=== PATIENT | female | born 1980 | race Caucasian/White ===

== ENCOUNTER 2021-12-29 09:55 | Emergency (ER) | payer OTHER, SELFPAY ==
[2021-12-29 10:04] VITALS: BP 132/79; PULSE 90; RESP 14; TEMP 37.2; O2SAT 98; BMI 28.9
--- NOTE | 2021-12-29 11:02 | ED_ITS ---
HPI - Animal Bite General Chief Complaint: Animal Bite Stated Complaint: Animal bite right hand Time Seen by Provider: 12/29/21 10:55 Source: patient Mode of arrival: Ambulatory Limitations: no limitations History of Present Illness HPI narrative: This is a 41-year-old female who was bitten multiple times by a kinkajou on both thighs, multiple fingers of the right hand particularly over the joints and left finger. Patient's tetanus is up-to-date in the last 3 years. She takes an antidepressant but otherwise no other daily medications. She has had a partial hysterectomy and cholecystectomy. No known drug allergies. 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 She states the animal has been born ion captivity in their facility, has never had contact with other animals and has not shown any signs of infection. This animal has not been hit but she waited to people otherwise. She states it has not handled by humans normally. Patient states typically the animal will not come out while cleaning the cage which is what she was doing today. Today she completed her activities the animal exited it is housing the cage and jumped onto her arm. She states this is never current before. She moved her arm to try to get to jump back to its ledge and it began biting her. She did not appreciate any other new changes today. Patient states that she poured a bottle of hydrogen peroxide on the wounds on her hands. Related Data Previous Rx's Medication Instructions Recorded amoxicillin 875 mg-potassium 1 tab PO BID #20 tab 12/29/21 clavulanate 125 mg tablet doxycycline hyclate 100 mg tablet 100 mg PO BID #20 tab 12/29/21 Allergies Allergy/AdvReac Type Severity Reaction Status Date / Time No Known Drug Allergies Allergy Verified 12/29/21 10:04 Review of Systems Review of Systems ROS Unobtainable: All systems reviewed & are unremarkable except as noted in HPI and below Patient History Social History Smoking Status: Unknown if ever smoked Smoking Status: Unknown if ever smoked alcohol intake frequency: holidays/special occasions only Substance Use Type: does not use Exam Narrative Exam Narrative: GEN: well nourished, well appearing female, alert and oriented x 3, patient appears to be in mild distress. HEENT: Atraumatic, pupils are equal round reactive to light, extraocular movements are intact, nares are clear. HEART: Regular rate and rhythm without murmur, clicks, rubs. LUNGS:Lungs clear to auscultation, no wheezes, rales, crackles, chest moves symmetrically ABD:bowel sounds normal, soft, non-tender, no guarding, rebound, rigidity, no masses noted, no hepatosplenomegaly MSCL: Non-tender, no muscle atrophy, patient has multiple bites on her right kyle nd the majority are puncture and either superficial or quite small, she does have a laceration over the 2nd proximal interphalangeal joint she has about a 1 cm in length and deep and appears to be down to the joint capsule but appears intact, she has a 2nd laceration that is over the 3rd digit in the soft tissue just proximal to the middle interphalangeal joint which does gape with flexion extension but does not appear to be deep down to the joint itself. Patient has several small punctures on her left hand that are more superficial as well as right and left thigh, full range of motion, normal gait NEURO:CN 2-12 intact, sensation normal SKIN: Please note above. Initial Vital Signs Initial Vital Signs: Vital Signs Temperature 99.0 F 12/29/21 10:04 Pulse Rate 90 12/29/21 10:04 Respiratory Rate 14 12/29/21 10:04 Blood Pressure 132/79 12/29/21 10:04 Pulse Oximetry 98 12/29/21 10:04 Course Orders Ordered: Discontinued Medications Amoxicillin/Clavulanate Potassium (Amoxicillin/Clav 875/125 Mg) 1 tab PO NOW ONE Stop: 12/29/21 13:17 Last Admin: 12/29/21 13:50 Dose: 1 tab Documented by: DEB Bacitracin (Bacitracin Oint 0.9 Gm Pckt) 1 applic TOP NOW ONE Stop: 12/29/21 13:20 Last Admin: 12/29/21 13:50 Dose: 1 applic Documented by: DEB Doxycycline Hyclate (Doxycycline Hyclate 100 Mg Tablet) 100 mg PO NOW ONE Stop: 12/29/21 13:17 Last Admin: 12/29/21 13:50 Dose: 100 mg Documented by: DEB Lidocaine/Sodium Bicarbonate (Lido 1%/Sod Bicarb 8.4% (10ml) 10 Ml Syringe) 10 ml INJ NOW ONE Stop: 12/29/21 11:28 Last Admin: 12/29/21 12:04 Dose: 10 ml Documented by: BTONER Reevaluation(s) Reevaluation #1: Patient and I had discussed she had 2 wounds which are over joints or deeper and gape with movement. We discussed risks versus benefits of suture repair. Patient had wound irrigated here in the department. Major to irrigate the wounds on her thighs which she had not done so yet. After discussion initially were going to put approximate with 1 or 2 very loose sutures but after patient contemplated this for some time she elected not to have suture placement and to allow to heal by secondary intention to decrease infection risk. Vital Signs Vital signs: Vital Signs - 8 hr 12/29/21 13:58 Pulse Rate 91 H Respiratory Rate 18 Blood Pressure 132/79 Pulse Oximetry 100 MDM - Animal Bite MDM Narrative Medical decision making narrative: This is a pleasant 41-year-old female who had multiple bites from a captive animal at the facility she works set. Concerns for rabies are low this animal has been born and brought in captivity without contact with other animals it lives solitary early and is not handled regularly. Rabies vaccination was deferred 2nd did this. Wounds were irrigated, evaluated risk versus benefits for suture removal for the 2 deepest wounds were discussed and patient elects to hold off after sometime contemplating this. She was started on doxycycline and Augmentin for broad-spectrum coverage. Patient's tetanus is up to date. We discussed return precautions all questions answered. Patient had wounds bandaged and splint was placed over the 2 that are over joints so that they can heal properly. All questions answered. Discharge Plan Departure Patient Disposition: Home Clinical Impression: Animal bites Instructions: DI for Animal Bites Activity Restrictions/Additional Instructions: Follow-up this week for recheck. Monitor closely for wound infections. Your wounds are healing by secondary intention so be sure to wear the splint to allow them to stay closed. You may take Tylenol and/or ibuprofen as needed for pain. Take both antibiotics until completely gone. Prescription sent to [facility] in [place] Wound Care: Keep wound(s) clean and dry. Wash daily with soap and water only. Do not use over the counter products (alcohol or peroxide)on the wounds unless instructed by a physician. If wound condition worsens (increased/expanding redness, developing fluid blisters, or worsening pain), either contact your doctor for an urgent re- assessment , or return to the Emergency Department. Return to the Emergency Department for any new or worsening symptoms. Return if fever greater than 100.4 Fahrenheit, increased swelling, increasing pain or worsening symptoms such as increased discharge or spreading redness. Prescriptions: New doxycycline hyclate 100 mg tablet 100 mg PO BID Qty: 20 0RF amoxicillin-pot clavulanate 875-125 mg tablet 1 tab PO BID Qty: 20 0RF
--- NOTE | 2021-12-29 11:55 | PC.NURSE ---
irrigated wounds on hands and legs with sterile water per dr. davis request.
[2021-12-29] MEDS: LIDO 1%/SOD BICARB 8.4% (10ML) 10 ML SYRINGE INJ (12:04)
[2021-12-29] MEDS: BACITRACIN OINT 0.9 GM PCKT 1 APPLIC TOP (13:50)
[2021-12-29] MEDS: AMOXICILLIN/CLAV 875/125 MG 1 TAB PO (13:50)
[2021-12-29] MEDS: DOXYCYCLINE HYCLATE 100 MG TABLET PO (13:50)
[2021-12-29 13:58] VITALS: BP 132/79; PULSE 91; RESP 18; O2SAT 100
== END 2021-12-29 13:59 | disposition home or self-care (01) ==
PROVIDERS: Emergency Provider Emergency Medicine
DX: S61.250A Open bite of right index finger without damage to nail, initial encounter (principal); S61.252A Open bite of right middle finger without damage to nail, initial encounter; S60.572A Other superficial bite of hand of left hand, initial encounter; S70.372A Other superficial bite of left thigh, initial encounter; S70.371A Other superficial bite of right thigh, initial encounter; W55.81XA Bitten by other mammals, initial encounter; Y92.89 Other specified places as the place of occurrence of the external cause; Y99.0 Civilian activity done for income or pay
CPT/HCPCS: 99283